=== PATIENT | female | born 1965 | race Caucasian/White ===

== ENCOUNTER → 2017-07-28 | Outpatient (CLI) | payer OTHER | END | disposition home or self-care (01) | LOC: CFH 12:38 | PROVIDERS: ATTEND Obstetrics & Gynecology | DX: Z12.31 Encounter for screening mammogram for malignant neoplasm of breast (principal) | CPT/HCPCS: 77063; 77067 ==

== ENCOUNTER → 2018-04-22 | Outpatient (CLI) | payer OTHER | END | disposition home or self-care (01) | LOC: CFH 09:47 | PROVIDERS: ATTEND Orthopaedic Surgery | DX: S83.231A Complex tear of medial meniscus, current injury, right knee, initial encounter (principal); M25.461 Effusion, right knee; X58.XXXA Exposure to other specified factors, initial encounter; Y93.89 Activity, other specified; Y92.89 Other specified places as the place of occurrence of the external cause; Y99.8 Other external cause status ==

== ENCOUNTER 2018-05-12 13:11 | Day surgery (SDC) | payer OTHER ==
[~2018-05-12] VITALS: Ht 170.2 cm; Wt 63.7 kg
[~2018-05-12 13:11] MED LIST: LIDOCAINE 1%-EPI 1:100K, 30ML ONE; NONE PER PT; ROPIvacaine/PF 0.5%, 30 ML ONE
[2018-05-12] MEDS ORDERED: LACTATED RINGERS 1,000 ML IV SCH (13:35)
[2018-05-12] MEDS ORDERED: MIDAZOLAM 1 MG/ML, 2ML ONE (13:50)
[2018-05-12] MEDS ORDERED: FENTANYL PF 250 MCG/5ML ONE (13:51)
[2018-05-12] MEDS ORDERED: GABAPENTIN 300 MG CAPSULE PO ONE (14:00)
[2018-05-12] MEDS ORDERED: FAMOTIDINE 20 MG TABLET PO ONE (14:00)
[2018-05-12] MEDS ORDERED: SCOPOLAMINE PATCH, 1.5MG PATCH.TD72 TD ONE (14:00)
[2018-05-12] MEDS ORDERED: ACETAMINOPHEN 500 MG TABLET PO ONE (14:00)
[2018-05-12 14:02] VITALS: BP 117/78
[2018-05-12] MEDS ORDERED: ONDANSETRON 2MG/ML, 2ML IV PRN (14:30)
[2018-05-12] MEDS ORDERED: PROMETHAZINE 25 MG/ML, 1ML IV PRN (14:30)
[2018-05-12] MEDS ORDERED: OXYcodone 5 MG/5 ML ORAL.SOL UDC PO PRN (14:30)
[2018-05-12] MEDS ORDERED: ONDANSETRON ODT 8 MG PO PRN (14:30)
[2018-05-12] MEDS ORDERED: MEPERIDINE/PF 25MG/0.5ML IVPush PRN (14:30)
[2018-05-12] MEDS ORDERED: HYDROmorphone 2 MG/ML, 1ML IVPush PRN (14:30)
[2018-05-12] MEDS ORDERED: DIAZEPAM 5 MG/ML, 2ML IVPush PRN (14:30)
[2018-05-12] MEDS ORDERED: DEXAMETHASONE 4 MG/ML, 1ML ONE (14:32)
[2018-05-12] MEDS ORDERED: PROPOFOL 10 MG/ML, 20ML ONE (14:32)
[2018-05-12] MEDS ORDERED: ONDANSETRON 2MG/ML, 2ML ONE (14:32)
[2018-05-12] MEDS ORDERED: CEFAZOLIN 1,000 MG ONE (14:32)
[2018-05-12] MEDS ORDERED: FENTANYL PF 100 MCG/2ML ONE (15:21)
[2018-05-12] MEDS ORDERED: OXYcodone 5 MG/5 ML ORAL.SOL UDC ONE (15:21)
[2018-05-12] MEDS: FENTANYL PF 100 MCG/2ML IV PRN ×2 (15:25→15:45)
== END 2018-05-12 17:55 | disposition home or self-care (01) ==
LOC: OUT 13:11
PROVIDERS: ATTEND Orthopaedic Surgery
DX: S83.231A Complex tear of medial meniscus, current injury, right knee, initial encounter (principal); S83.281A Other tear of lateral meniscus, current injury, right knee, initial encounter; X58.XXXA Exposure to other specified factors, initial encounter; Y93.89 Activity, other specified; Y92.89 Other specified places as the place of occurrence of the external cause; Y99.8 Other external cause status
CPT/HCPCS: 29880; J0690; J1100; J2250; J2405; J2704; J2795; J3010; J3490; J7120

== ENCOUNTER → 2018-06-30 | Outpatient (CLI) | payer OTHER ==
[~2018-06-30] MED LIST changes: -LIDOCAINE 1%-EPI 1:100K, 30ML ONE; -ROPIvacaine/PF 0.5%, 30 ML ONE
[2018-06-30 07:24] LABS: MEAN CORPUSCULAR HGB CONC 33.1 g/dL (32.4-35.8); MEAN CORPUSCULAR VOLUME 90.5 fL (80-100); MEAN PLATELET VOLUME 8.9 fL (7.4-10.4); PLATELET COUNT 227 x10^3/uL (130-400); RED BLOOD COUNT 4.92 x10^6/uL (3.82-5.3); RED CELL DISTRIBUTION WIDTH 13.4 % (9.6-15.2)
[2018-06-30 07:33] LABS: ALANINE AMINOTRANSFERASE 20 U/L (12-78); ALBUMIN 3.8 g/dL (3.4-5.0); ANION GAP 5 mmol/L (5-15); CALCIUM 8.2 mg/dL (8.5-10.1); CHLORIDE 107 mmol/L (98-107); CHOLESTEROL, TOTAL 194 mg/dL (140-239)
[2018-06-30 07:44] LABS: ALKALINE PHOSPHATASE 48 U/L (45-117); BILIRUBIN,TOTAL 0.8 mg/dL (0.2-1.0); CHOL/HDL RATIO 1.6; HDL CHOL % 61 % (28-40); HDL CHOLESTEROL (DIRECT) 118 mg/dL (40-60); LDL CHOLESTEROL,CALCULATED 68 mg/dL (54-169); LDL/HDL RATIO 0.6 (0.5-3.0); TOTAL PROTEIN 7.1 g/dL (6.4-8.2); TRIGLYCERIDES 40 mg/dL (50-200); VLDL CHOLESTEROL 8 mg/dL (0-25)
== END | disposition home or self-care (01) ==
LOC: LAB 07:02
PROVIDERS: ATTEND Obstetrics & Gynecology
DX: Z13.0 Encounter for screening for diseases of the blood and blood-forming organs and certain disorders involving the immune mechanism (principal); Z13.9 Encounter for screening, unspecified; Z13.29 Encounter for screening for other suspected endocrine disorder; Z13.220 Encounter for screening for lipoid disorders
CPT/HCPCS: 36415; 80053; 80061; 82306; 84443; 85027

== ENCOUNTER 2018-08-17 10:09 | Outpatient (CLI) | payer OTHER | END 2018-08-17 23:59 | disposition home or self-care (01) | LOC: CFH 10:09 | PROVIDERS: ATTEND Obstetrics & Gynecology | DX: Z12.31 Encounter for screening mammogram for malignant neoplasm of breast (principal) | CPT/HCPCS: 77063; 77067 ==

== ENCOUNTER → 2019-04-08 | Outpatient (CLI) | payer OTHER | END | disposition home or self-care (01) | LOC: LAB 13:28 | PROVIDERS: ATTEND Obstetrics & Gynecology | DX: N95.1 Menopausal and female climacteric states (principal) | CPT/HCPCS: 36415; 82670; 83001 ==

== ENCOUNTER 2019-08-22 10:01 | Outpatient (CLI) | payer OTHER | END 2019-08-22 23:59 | disposition home or self-care (01) | LOC: CFH 10:01 | PROVIDERS: ATTEND Obstetrics & Gynecology | DX: Z12.31 Encounter for screening mammogram for malignant neoplasm of breast (principal) | CPT/HCPCS: 77063; 77067 ==

== ENCOUNTER 2019-09-09 09:10 | Outpatient (CLI) | payer OTHER | END 2019-09-09 23:59 | disposition home or self-care (01) | LOC: CFH 09:10 | PROVIDERS: ATTEND Obstetrics & Gynecology | DX: R92.2 Inconclusive mammogram (principal) | CPT/HCPCS: 76641 ==

== ENCOUNTER 2020-08-02 07:10 | Emergency (ER) | payer OTHER ==
[~2020-08-02] VITALS: Ht 170.2 cm; Wt 65.5 kg
[2020-08-02] MEDS ORDERED: SODIUM CHLORIDE 0.9% 1,000ML IVBOLUS ONE (08:00)
--- NOTE | 2020-08-02 08:05 | NUR ---
PT URINE REQUESTED. PT UNABLE TO URINATE AT THS TIME. PT EDUCATED ON URINE SAMPLE COLLECTION AND ADVISED TO CALL WHEN READY.
[2020-08-02 08:09] LABS: BASOPHILS % (AUTO) 0 % (0-1); EOSINOPHILS % (AUTO) 0 % (1-7); LYMPHOCYTES % (AUTO) 5 % (22-44); MEAN CORPUSCULAR HEMOGLOBIN 30.7 pg (27.0-34.8); MEAN CORPUSCULAR HGB CONC 34.6 g/dL (32.4-35.8); MONOCYTES % (AUTO) 11 % (2-9); NEUTROPHILS % (AUTO) 83 % (42-75); PLATELET COUNT 133 x10^3/uL (130-400); RED BLOOD COUNT 4.61 x10^6/uL (3.82-5.3); RED CELL DISTRIBUTION WIDTH 13.2 % (9.6-15.2)
[2020-08-02 08:15] LABS: MD NO
[2020-08-02 08:19] LABS: ALANINE AMINOTRANSFERASE 19 U/L (12-78); ALBUMIN 3.3 g/dL (3.4-5.0); ANION GAP 9 mmol/L (5-15); CALCIUM 8.8 mg/dL (8.5-10.1); CHLORIDE 96 mmol/L (98-107); CREATININE 0.68 mg/dL (0.55-1.02)
[2020-08-02 08:21] LABS: ALKALINE PHOSPHATASE 63 U/L (45-117); BILIRUBIN,TOTAL 0.6 mg/dL (0.2-1.0); TOTAL PROTEIN 7.2 g/dL (6.4-8.2)
--- NOTE | 2020-08-02 09:06 | NUR ---
TASK RN: PT UP TO RESTROOM AND BACK TO BED. UA COLLECTED, LABELED AND SENT TO LAB. PT RESTING ON GURNEY. PER PT STATES DIZZINESS UPON LAYING DOWN. BP RECHECKED AND NOTED TO BE 131/80 W/ HR 111. ERP NOTIFIED.
[2020-08-02 09:36] LABS: MICROSCOPIC INDICATED
[2020-08-02 11:02] VITALS: BP 138/81
== END 2020-08-02 11:03 | disposition home or self-care (01) ==
LOC: ED 07:26
DX: R11.2 Nausea with vomiting, unspecified (principal); K59.00 Constipation, unspecified; R10.30 Lower abdominal pain, unspecified; R94.31 Abnormal electrocardiogram [ECG] [EKG]
CPT/HCPCS: 36415; 80053; 81001; 85025; 93005; 96360; 99284; J7030

== ENCOUNTER 2020-08-06 08:00 | Emergency (ER) | payer OTHER ==
[~2020-08-06] VITALS: Ht 170.2 cm; Wt 64.0 kg
[2020-08-06 08:03] VITALS: BP 114/79
== END 2020-08-06 08:33 | disposition left against medical advice (07) ==
LOC: ED 08:30
DX: R10.9 Unspecified abdominal pain (principal); R50.9 Fever, unspecified; Z53.21 Procedure and treatment not carried out due to patient leaving prior to being seen by health care provider

== ENCOUNTER 2020-08-08 09:22 | Inpatient (IN) | payer OTHER ==
[~2020-08-08] VITALS: Ht 170.2 cm; Wt 68.5 kg
--- NOTE | 2020-08-08 09:37 | NUR ---
SEEN HERE RECENTLY FOR FOOD POISONING. PCP PRESCRIBED AZITHROMYCIN. C/O PERSISTENT LWR ABD PAIN. COUGH AND FEVER AT HOME. COVID VACCINE X2 AND NEGATIVE TEST THURSDAY. PT TO BED WITH STEADY GAIT. POSTIONED TO COMFORT. ATTACHED TO MONITORS. VSS. NADN. AWAITING ORDERS.
--- NOTE | 2020-08-08 09:44 | NUR ---
DR. ALBRIGHT TO BEDSIDE FOR EVALUATION.
[2020-08-08] MEDS ORDERED: SODIUM CHLORIDE 0.9% 1,000ML IVBOLUS ONE (10:00)
[2020-08-08 10:21] LABS: BASOPHILS % (AUTO) 0 % (0-1); EOSINOPHILS % (AUTO) 0 % (1-7); LYMPHOCYTES % (AUTO) 7 % (22-44); MEAN CORPUSCULAR HGB CONC 34.1 g/dL (32.4-35.8); MEAN PLATELET VOLUME 8.5 fL (7.4-10.4); MONOCYTES % (AUTO) 8 % (2-9); NEUTROPHILS % (AUTO) 85 % (42-75); PLATELET COUNT 380 x10^3/uL (130-400); RED BLOOD COUNT 4.33 x10^6/uL (3.82-5.3); RED CELL DISTRIBUTION WIDTH 13.9 % (9.6-15.2)
[2020-08-08 10:33] LABS: ALANINE AMINOTRANSFERASE 107 U/L (12-78); ANION GAP 7 mmol/L (5-15); CALCIUM 9.2 mg/dL (8.5-10.1); CHLORIDE 96 mmol/L (98-107); CREATININE 0.69 mg/dL (0.55-1.02)
[2020-08-08 10:35] LABS: ALKALINE PHOSPHATASE 141 U/L (45-117); BILIRUBIN,TOTAL 0.4 mg/dL (0.2-1.0); TOTAL PROTEIN 8.3 g/dL (6.4-8.2)
[2020-08-08 10:36] LABS: MICROSCOPIC INDICATED
--- NOTE | 2020-08-08 10:46 | NUR ---
PT TO CT. VSS. NADN.
[2020-08-08 10:47] LABS: MD SCAN
[2020-08-08] MEDS ORDERED: SODIUM CHLORIDE FLUSH 10ML SYR IVF ONE (11:00)
[2020-08-08] MEDS ORDERED: OMNIPAQUE 350 MG/ML, 100ML BOTTLE ONE (11:01)
[2020-08-08] MEDS ORDERED: PIPERACILLIN/TAZO 3.375 GM in DEXTROSE 5% 50 ML IVPB ONE (12:30)
[2020-08-08] MEDS ORDERED: ENOXAPARIN 40 MG/0.4 ML ONE (12:57)
[2020-08-08] MEDS ORDERED: ONDANSETRON ODT 4 MG PO PRN (13:00)
[2020-08-08] MEDS ORDERED: MORPHINE SULFATE 4 MG/ML, 1ML IVPush PRN (13:00)
[2020-08-08] MEDS ORDERED: ACETAMINOPHEN 325 MG TABLET PO PRN (13:00)
[2020-08-08] MEDS ORDERED: ONDANSETRON 2MG/ML, 2ML IVPush PRN (13:00)
[2020-08-08] MEDS: ENOXAPARIN 40 MG/0.4 ML SQ SCH (13:06)
[2020-08-08] MEDS: LACTATED RINGERS 1,000 ML IV SCH (13:06)
[2020-08-08] MEDS ORDERED: LIDOCAINE 1%, 10ML ONE (13:15)
--- NOTE | 2020-08-08 13:16 | NUR ---
TASK RN: PT AMBULATED TO BATHROOM, UPRIGHT STEADY GAIT. RTD TO ROOM W/O INCIDENT. IVF STARTED ORDERED AND PT MEDICATED NOTED. CALL LIGHT W/I REACH. VSS
--- NOTE | 2020-08-08 13:21 | NUR ---
PT TO IR WITH RAD CONTINUITY COORDINATOR
--- NOTE | 2020-08-08 13:26 | NUR ---
PT TO IR
[2020-08-08] MEDS ORDERED: MIDAZOLAM 1 MG/ML, 5ML ONE ×2 (13:29→13:30)
[2020-08-08] MEDS ORDERED: FENTANYL PF 100 MCG/2ML ONE ×2 (13:29)
[2020-08-08] MEDS ORDERED: NALOXONE 1 MG/ML, 2ML ONE (13:30)
[2020-08-08] MEDS ORDERED: FLUMAZENIL 0.1 MG/1 ML, 5ML ONE (13:30)
--- NOTE | 2020-08-08 14:22 | NUR ---
report from IR rn, pt had midline according drain placed to drain abcess. 7 of versed and 175 of fentanyl given along with 300 ml of ns
--- NOTE | 2020-08-08 14:26 | NUR ---
report called to YESIKA. pt to tx after bedside us.
[2020-08-08] MEDS: ERTAPENEM 1 GM in SODIUM CHLORIDE 0.9% 50 ML IV SCH (14:29)
--- NOTE | 2020-08-08 14:34 | NUR ---
pt in bed for us. medicated per emar. attached to monitors. jossie. marshall.
[2020-08-08 15:06] VITALS: BP 102/64
[2020-08-08] MEDS: BENZONATATE 100 MG CAPSULE PO SCH ×3 (16:16→21:07)
[2020-08-08] MEDS: KETOROLAC 30 MG/1 ML IV PRN ×2 (16:17→22:21)
[2020-08-08 18:40] VITALS: BP 114/76
[2020-08-09 01:04] VITALS: BP 91/56
[2020-08-09 01:14] VITALS: BP 107/70
[2020-08-09 06:11] LABS: BASOPHILS % (AUTO) 1 % (0-1); EOSINOPHILS % (AUTO) 1 % (1-7); LYMPHOCYTES % (AUTO) 11 % (22-44); MEAN CORPUSCULAR HEMOGLOBIN 30.5 pg (27.0-34.8); MEAN CORPUSCULAR HGB CONC 34.1 g/dL (32.4-35.8); MEAN PLATELET VOLUME 7.9 fL (7.4-10.4); MONOCYTES % (AUTO) 8 % (2-9); NEUTROPHILS % (AUTO) 80 % (42-75); PLATELET COUNT 360 x10^3/uL (130-400); RED CELL DISTRIBUTION WIDTH 13.3 % (9.6-15.2)
[2020-08-09 06:18] LABS: ANION GAP 6 mmol/L (5-15); CALCIUM 8.2 mg/dL (8.5-10.1); CHLORIDE 99 mmol/L (98-107); MD NO
[2020-08-09] MEDS: BENZONATATE 100 MG CAPSULE PO SCH ×3 (06:19→20:01)
[2020-08-09 06:21] LABS: CREATININE 0.57 mg/dL (0.55-1.02)
[2020-08-09 07:06] VITALS: BP 114/70
[2020-08-09] MEDS ORDERED: GUAIFENESIN/DM 200-20MG, 10ML UDC ONE (12:12)
[2020-08-09] MEDS ORDERED: GUAIFENESIN/DM 100-10MG, 5ML UDC PO PRN (12:30)
[2020-08-09] MEDS: ENOXAPARIN 40 MG/0.4 ML SQ SCH (12:36)
[2020-08-09 13:25] VITALS: BP 110/70
[2020-08-09] MEDS: ERTAPENEM 1 GM in SODIUM CHLORIDE 0.9% 50 ML IV SCH (13:42)
[2020-08-09] MEDS: LACTATED RINGERS 1,000 ML IV SCH (16:37)
[2020-08-09 20:13] VITALS: BP 137/63
[2020-08-10 01:07] VITALS: BP 121/65
[2020-08-10 06:54] VITALS: BP 112/70
[2020-08-10] MEDS: LACTATED RINGERS 1,000 ML IV SCH (09:02)
[2020-08-10] MEDS: BENZONATATE 100 MG CAPSULE PO SCH ×3 (09:02→21:32)
[2020-08-10 13:45] VITALS: BP 120/82
[2020-08-10] MEDS: ERTAPENEM 1 GM in SODIUM CHLORIDE 0.9% 50 ML IV SCH (13:52)
[2020-08-10] MEDS: ENOXAPARIN 40 MG/0.4 ML SQ SCH (13:52)
[2020-08-10 19:30] VITALS: BP 137/83
[2020-08-11 01:32] VITALS: BP 125/83
[2020-08-11] MEDS: LACTATED RINGERS 1,000 ML IV SCH (02:43)
[2020-08-11 07:15] VITALS: BP 126/84
[2020-08-11] MEDS: BENZONATATE 100 MG CAPSULE PO SCH ×3 (08:30→20:32)
[2020-08-11] MEDS: FAMOTIDINE 20 MG TABLET PO SCH ×2 (09:46→20:30)
[2020-08-11] MEDS: PIPERACILLIN/TAZO 4.5 GM in DEXTROSE 5% 100 ML IV SCH ×2 (11:33→19:29)
[2020-08-11] MEDS: ENOXAPARIN 40 MG/0.4 ML SQ SCH (13:10)
[2020-08-11 14:20] VITALS: BP 122/79
[2020-08-11 19:23] VITALS: BP 126/61
[2020-08-12 01:24] VITALS: BP 119/78
[2020-08-12] MEDS: PIPERACILLIN/TAZO 4.5 GM in DEXTROSE 5% 100 ML IV SCH ×3 (03:27→19:22)
[2020-08-12 05:43] LABS: BASOPHILS % (AUTO) 1 % (0-1); EOSINOPHILS % (AUTO) 3 % (1-7); LYMPHOCYTES % (AUTO) 15 % (22-44); MEAN CORPUSCULAR HEMOGLOBIN 30.2 pg (27.0-34.8); MEAN CORPUSCULAR HGB CONC 34.4 g/dL (32.4-35.8); MEAN PLATELET VOLUME 7.8 fL (7.4-10.4); MONOCYTES % (AUTO) 8 % (2-9); NEUTROPHILS % (AUTO) 72 % (42-75); PLATELET COUNT 465 x10^3/uL (130-400); RED BLOOD COUNT 3.85 x10^6/uL (3.82-5.3); RED CELL DISTRIBUTION WIDTH 13.3 % (9.6-15.2)
[2020-08-12 05:51] LABS: ANION GAP 5 mmol/L (5-15); CALCIUM 8.4 mg/dL (8.5-10.1); CHLORIDE 104 mmol/L (98-107); CREATININE 0.57 mg/dL (0.55-1.02); MD NO
[2020-08-12 06:29] VITALS: BP 125/79
[2020-08-12] MEDS: FAMOTIDINE 20 MG TABLET PO SCH ×3 (09:00→20:02)
[2020-08-12] MEDS: BENZONATATE 100 MG CAPSULE PO SCH ×3 (09:00→20:02)
[2020-08-12] MEDS: ENOXAPARIN 40 MG/0.4 ML SQ SCH (13:35)
[2020-08-12 14:23] VITALS: BP 110/69
[2020-08-12 19:43] VITALS: BP 129/78
[2020-08-13] MEDS: PIPERACILLIN/TAZO 4.5 GM in DEXTROSE 5% 100 ML IV SCH ×3 (03:16→19:31)
[2020-08-13 06:25] LABS: HCT (SEDRATE) 36.4 % (34.6-47.8)
[2020-08-13 06:28] LABS: BASOPHILS % (AUTO) 1 % (0-1); EOSINOPHILS % (AUTO) 2 % (1-7); LYMPHOCYTES % (AUTO) 14 % (22-44); MEAN CORPUSCULAR HEMOGLOBIN 30.3 pg (27.0-34.8); MEAN PLATELET VOLUME 7.5 fL (7.4-10.4); MONOCYTES % (AUTO) 8 % (2-9); NEUTROPHILS % (AUTO) 76 % (42-75); PLATELET COUNT 485 x10^3/uL (130-400); RED BLOOD COUNT 3.98 x10^6/uL (3.82-5.3); RED CELL DISTRIBUTION WIDTH 13.8 % (9.6-15.2)
[2020-08-13 06:34] LABS: MD NO
[2020-08-13 06:39] LABS: ALANINE AMINOTRANSFERASE 80 U/L (12-78); ALBUMIN 2.5 g/dL (3.4-5.0); ANION GAP 6 mmol/L (5-15); CALCIUM 8.9 mg/dL (8.5-10.1); CHLORIDE 102 mmol/L (98-107); CREATININE 0.61 mg/dL (0.55-1.02)
[2020-08-13 06:45] LABS: ALKALINE PHOSPHATASE 79 U/L (45-117); BILIRUBIN,TOTAL 0.4 mg/dL (0.2-1.0); TOTAL PROTEIN 6.9 g/dL (6.4-8.2)
[2020-08-13 07:04] VITALS: BP 117/77
[2020-08-13] MEDS: FAMOTIDINE 20 MG TABLET PO SCH ×2 (08:10→19:32)
[2020-08-13] MEDS: BENZONATATE 100 MG CAPSULE PO SCH (08:10)
[2020-08-13 13:15] VITALS: BP 113/78
[2020-08-13] MEDS: ENOXAPARIN 40 MG/0.4 ML SQ SCH (13:47)
[2020-08-13] MEDS ORDERED: LACTOBACILLUS CHEW TABLET PO SCH (16:00)
[2020-08-13 18:39] VITALS: BP 120/77
[2020-08-14] MEDS: PIPERACILLIN/TAZO 4.5 GM in DEXTROSE 5% 100 ML IV SCH ×3 (03:32→19:44)
[2020-08-14 03:41] LABS: BASOPHILS % (AUTO) 1 % (0-1); EOSINOPHILS % (AUTO) 2 % (1-7); LYMPHOCYTES % (AUTO) 16 % (22-44); MEAN CORPUSCULAR HEMOGLOBIN 29.9 pg (27.0-34.8); MEAN CORPUSCULAR HGB CONC 33.9 g/dL (32.4-35.8); MEAN PLATELET VOLUME 7.4 fL (7.4-10.4); MONOCYTES % (AUTO) 8 % (2-9); NEUTROPHILS % (AUTO) 73 % (42-75); PLATELET COUNT 500 x10^3/uL (130-400); RED BLOOD COUNT 4.09 x10^6/uL (3.82-5.3); RED CELL DISTRIBUTION WIDTH 13.7 % (9.6-15.2)
[2020-08-14 03:42] LABS: MD NO
[2020-08-14] MEDS ORDERED: FUROSEMIDE 20 MG/2 ML IV ONE (06:00)
[2020-08-14 07:20] VITALS: BP 103/71
[2020-08-14] MEDS: FAMOTIDINE 20 MG TABLET PO SCH ×2 (09:00→19:33)
[2020-08-14] MEDS ORDERED: LACTOBACILLUS CHEW TABLET PO SCH (09:00)
[2020-08-14 13:28] VITALS: BP 106/76
[2020-08-14] MEDS: ENOXAPARIN 40 MG/0.4 ML SQ SCH (14:04)
[2020-08-14] MEDS ORDERED: OMNIPAQUE 350 MG/ML, 100ML BOTTLE ONE (14:20)
[2020-08-14 18:48] VITALS: BP 106/72
[2020-08-15] MEDS: PIPERACILLIN/TAZO 4.5 GM in DEXTROSE 5% 100 ML IV SCH ×3 (04:07→20:30)
[2020-08-15 04:20] LABS: MEAN CORPUSCULAR HEMOGLOBIN 30.2 pg (27.0-34.8); MEAN CORPUSCULAR HGB CONC 33.9 g/dL (32.4-35.8); MEAN PLATELET VOLUME 7.5 fL (7.4-10.4); PLATELET COUNT 500 x10^3/uL (130-400); RED CELL DISTRIBUTION WIDTH 13.6 % (9.6-15.2)
[2020-08-15 04:29] LABS: ANION GAP 5 mmol/L (5-15); CALCIUM 8.7 mg/dL (8.5-10.1); CHLORIDE 105 mmol/L (98-107); CREATININE 0.58 mg/dL (0.55-1.02)
[2020-08-15 04:48] LABS: MD YES
[2020-08-15 04:49] LABS: BAND#(MANUAL) 0.09 x10^3/uL; BANDS%(MANUAL) 1 % (0-7); BASOS#(MANUAL) 0.09 x10^3/uL (0-0.1); BASOS% (MANUAL) 1 % (0-1); EOS#(MANUAL) 0.47 x10^3/uL (0.0-0.4); EOS% (MANUAL) 5 % (1-7); LYMPH#(MANUAL) 2.35 x10^3/uL (1-3.4); LYMPHS% (MANUAL) 25 % (22-44); METAMYELOCYTES# (MANUAL) 0.19 x10^3/uL (0-0); METAMYELOCYTES% (MANUAL) 2 % (0-1); MONOS#(MANUAL) 0.85 x10^3/uL (0.3-2.7); MONOS% (MANUAL) 9 % (2-9); SEG#(MANUAL) 5.36 x10^3/uL (1.8-6.8); SEGS% (MANUAL) 57 % (42-75)
[2020-08-15 04:50] LABS: <PLATELET ESTIMATE> INCREASED; <PLT MORPHOLOGY> NORMAL PLT MORPH; <RBC MORPHOLOGY> NORMAL
[2020-08-15] MEDS: FAMOTIDINE 20 MG TABLET PO SCH ×2 (08:21→20:30)
[2020-08-15 09:24] VITALS: BP 108/73
[2020-08-15] MEDS: ENOXAPARIN 40 MG/0.4 ML SQ SCH (12:28)
[2020-08-15 15:07] VITALS: BP 108/73
[2020-08-15 19:18] VITALS: BP 111/74
[2020-08-16] MEDS: PIPERACILLIN/TAZO 4.5 GM in DEXTROSE 5% 100 ML IV SCH ×3 (04:18→20:29)
[2020-08-16] MEDS: FAMOTIDINE 20 MG TABLET PO SCH ×2 (09:00→20:30)
[2020-08-16] MEDS: ENOXAPARIN 40 MG/0.4 ML SQ SCH (11:47)
[2020-08-16 12:17] VITALS: BP 124/77
[2020-08-16 20:31] VITALS: BP 111/76
[2020-08-17] MEDS: PIPERACILLIN/TAZO 4.5 GM in DEXTROSE 5% 100 ML IV SCH ×2 (04:39→11:39)
[2020-08-17 07:59] VITALS: BP 126/84
[2020-08-17] MEDS: FAMOTIDINE 20 MG TABLET PO SCH (08:44)
[2020-08-17] MEDS ORDERED: PIPE4.5F2 IV (12:31)
[2020-08-17] MEDS: ENOXAPARIN 40 MG/0.4 ML SQ SCH (13:00)
== END 2020-08-17 14:36 | disposition home or self-care (01) | DRG 872 ==
LOC: ED 09:45 → EDIP 12:37 → 3N 14:56
PROVIDERS: ADMIT Internal Medicine; ATTEND Hospitalist
PROC: 0W9J3ZZ Drainage of Pelvic Cavity, Percutaneous Approach (ICD-10-PCS; principal; 2020-08-08)
PROC: 02HV33Z Insertion of Infusion Device into Superior Vena Cava, Percutaneous Approach (ICD-10-PCS; 2020-08-10)
PROC: B5181ZA Fluoroscopy of Superior Vena Cava using Low Osmolar Contrast, Guidance (ICD-10-PCS; 2020-08-10)
PROC: B548ZZA Ultrasonography of Superior Vena Cava, Guidance (ICD-10-PCS; 2020-08-10)
DX: A41.9 Sepsis, unspecified organism (principal); E87.1 Hypo-osmolality and hyponatremia; J90 Pleural effusion, not elsewhere classified; D64.9 Anemia, unspecified; N73.9 Female pelvic inflammatory disease, unspecified
CPT/HCPCS: 36415; 96361; 96372; 96374; 96375; 99285; J3490; 36573; 49406; 71045; 74177; 76705; 80048; 80053; 80074; 81001; 83605; 85025; 85651; 86140; 87040; 87070; 87075; 87077; 87086; 87186; 87205; 99156; 99157; C1894; G0378; J1335; J1650; J1885; J2250; J2543; J3010; Q9967; C1729; C1751; C1769; J1940; J2310; J7030; J7120

== ENCOUNTER → 2020-08-29 | Outpatient (CLI) | payer OTHER ==
[~2020-08-29] MED LIST changes: +PIPE4.5F2 IV
== END | disposition home or self-care (01) ==
LOC: LAB 16:56
PROVIDERS: ATTEND Internal Medicine Infectious Disease
DX: K65.1 Peritoneal abscess (principal); R70.0 Elevated erythrocyte sedimentation rate; R79.82 Elevated C-reactive protein (CRP)
CPT/HCPCS: 36415; 87040

== ENCOUNTER 2020-08-30 11:25 | Outpatient (CLI) | payer OTHER | END 2020-08-30 23:59 | disposition home or self-care (01) | LOC: LAB 11:25 | PROVIDERS: ATTEND Internal Medicine Infectious Disease | DX: K65.1 Peritoneal abscess (principal); R70.0 Elevated erythrocyte sedimentation rate; R79.82 Elevated C-reactive protein (CRP); B95.7 Other staphylococcus as the cause of diseases classified elsewhere | CPT/HCPCS: 36415; 87040 ==

== ENCOUNTER → 2020-09-03 | Outpatient (CLI) | payer OTHER ==
[~2020-09-03] MED LIST changes: +OMNIPAQUE 350 MG/ML, 100ML BOTTLE ONE
== END | disposition home or self-care (01) ==
LOC: CFH 10:23
PROVIDERS: ATTEND Internal Medicine Infectious Disease
DX: N28.1 Cyst of kidney, acquired (principal); K65.1 Peritoneal abscess
CPT/HCPCS: 74177; Q9967

== ENCOUNTER → 2020-09-27 | Outpatient (CLI) | payer OTHER ==
[~2020-09-27] MED LIST changes: -OMNIPAQUE 350 MG/ML, 100ML BOTTLE ONE
== END | disposition home or self-care (01) ==
LOC: CFH 10:07
PROVIDERS: ATTEND Obstetrics & Gynecology
DX: Z12.31 Encounter for screening mammogram for malignant neoplasm of breast (principal)
CPT/HCPCS: 77063; 77067